=== PATIENT | male | born 1980 | race Caucasian/White ===

== ENCOUNTER 2016-05-22 16:06 | Emergency (ER) | payer OTHER ==
[~2016-05-22] VITALS: Ht 180.3 cm; Wt 85.0 kg
[2016-05-22 16:06] VITALS: BP 128/69; PULSE 108; RESP 18; TEMP 98.2; O2SAT 93
[2016-05-22 16:10] VITALS: BP 128/69; PULSE 106; RESP 16; O2SAT 95
[2016-05-22] MEDS ORDERED: SODIUM CHLOR 0.9% 1000 ML INJ 1,000 ML IV ONE (16:20)
[2016-05-22] MEDS ORDERED: LISI10TA3 PO (16:27)
[2016-05-22] MEDS ORDERED: METF500T PO (16:27)
[2016-05-22] MEDS ORDERED: GABA600T PO (16:27)
[2016-05-22] MEDS ORDERED: INSULIN HUMAN REGULAR 1,000 UNITS/10 ML VIAL IVP ONE ×2 (16:30→18:30)
[2016-05-22] MEDS ORDERED: SODIUM CHLORIDE 0.9% FLUSH 5 ML FLUSH IVF PRN (16:30)
[2016-05-22 16:58] LABS: AUTOMATED NEUTROPHIL # 7.6 TH/MM3 (1.8-7.7); BASOPHIL # 0.1 TH/MM3 (0-0.2); BASOPHIL % 1.1 % (0.0-2.0); EOSINOPHIL # 0.1 TH/MM3 (0-0.4); EOSINOPHIL % 1.1 % (0.0-4.0); HEMATOCRIT 43.8 % (39.0-51.0); HEMO FLAGS DIFF FINAL; LYMPH % 27.7 % (9.0-44.0); LYMPHOCYTE # 3.4 TH/MM3 (1.0-4.8); MEAN CELL VOLUME 97.8 FL (80.0-100.0); MEAN CORPUSCULAR HEMOGLOBIN 34.4 PG (27.0-34.0); MEAN CORPUSCULAR HGB CONC 35.2 % (32.0-36.0); MONO % 7.8 % (0.0-8.0); NEUT % 62.3 % (16.0-70.0); PLATELET COUNT 209 TH/MM3 (150-450); RED BLOOD COUNT 4.48 MIL/MM3 (4.50-5.90); RED CELL DISTRIBUTION WIDTH 12.5 % (11.6-17.2); WHITE BLOOD COUNT 12.2 TH/MM3 (4.0-11.0)
[2016-05-22 17:11] LABS: BLOOD, URINE NEG (NEG); GLUCOSE,URINE 1000 mg/dL (NEG); KETONE, URINE NEG (NEG); NITRITE,URINE NEG (NEG); URINE COLOR LIGHT-YELLOW (YELLW/STRAW)
--- NOTE | 2016-05-22 17:11 | PD ---
HPI Chief Complaint: Diabetic Time Seen by Provider: 16:07 Travel History International Travel<30 days: No Contact w/Intl Traveler<30days: No Traveled to known affect area: No History of Present Illness HPI This is a 35-year-old gentleman who is homeless, who presented to the emergency department via [facility] with complaints of elevated blood sugar. The patient also has a history of alcoholism. He states he has a history of bipolar disorder that he uses alcohol to control. He reports his blood sugar has been high. He states that he has not been taking his medications as prescribed. He says he is here because he wants his liver and his kidneys checked. The patient was noted to have a blood glucose of 444. Dextrose stick. No other complaints time my examination. PFSH Past Medical History Asthma: Yes Cardiovascular Problems: Yes (HTN) Diabetes: Yes (INSULIN-DEPENDENT) Patient Takes Glucophage: Yes (05/20/16) Diminished Hearing: No Tetanus Vaccination: < 5 Years Influenza Vaccination: Yes Past Surgical History Surgical History: No Previous Surgery Social History Alcohol Use: Yes (DAILY) Tobacco Use: Yes (2 PACKS) Substance Use: Yes (CANNABIS) Allergies-Medications (Allergen,Severity, Reaction): Coded Allergies: No Known Allergies (Unverified , 03/01/14) Reported Meds & Prescriptions Reported Meds & Active Scripts Active Reported Lisinopril 10 Mg Tab 10 Mg PO DAILY Metformin (Metformin HCl) 500 Mg Tab 500 Mg PO BIDPC With meals Gabapentin 600 Mg Tab 600 Mg PO TID Review of Systems Except as stated in HPI: all other systems reviewed are Neg General / Constitutional: No: Fever, Chills HENT: No: Headaches, Vertigo Cardiovascular: No: Chest Pain or Discomfort, Palpitations Respiratory: No: Cough, Shortness of Breath Gastrointestinal: No: Nausea, Vomiting Genitourinary: Positive: Frequency, No: Urgency Musculoskeletal: No: Weakness Neurologic: No: Weakness, Dizziness Endocrine: Positive: Polyuria, Polydipsia Physical Exam Narrative GENERAL: Disheveled well-developed gentleman in no acute respiratory distress. SKIN: Warm and dry. HEAD: Atraumatic. Normocephalic. EYES: No scleral icterus. No injection or drainage. ENT: Mucous membranes pink and moist. NECK: Trachea midline. No JVD. CARDIOVASCULAR: Regular rate and rhythm. No murmur appreciated. RESPIRATORY: No accessory muscle use. Clear to auscultation. Breath sounds equal bilaterally. GASTROINTESTINAL: Abdomen soft, non-tender, nondistended. No pulsatile masses. MUSCULOSKELETAL: No obvious deformities. No clubbing. No cyanosis. No edema. NEUROLOGICAL: Awake and alert. No obvious cranial nerve deficits. Motor grossly within normal limits. Slight slurred speech secondary to assumed alcohol use. Data Data Last Documented VS Vital Signs Date Time Temp Pulse Resp B/P Pulse Ox O2 Delivery O2 Flow Rate FiO2 05/22/16 18:40 98 16 105/59 96 Nasal Cannula 2 05/22/16 16:06 98.2 Orders Complete Blood Count With Diff (05/22/16 16:20) Comprehensive Metabolic Panel (05/22/16 16:20) Beta Hydroxybutyrate (Acetone) (05/22/16 16:20) Urinalysis - C+S If Indicated (05/22/16 16:20) Ecg Monitoring (05/22/16 16:20) Iv Access Insert/Monitor (05/22/16 16:20) Oximetry (05/22/16 16:20) NPO (05/22/16 16:20) Sodium Chlor 0.9% 1000 Ml Inj (Ns 1000 M (05/22/16 16:20) Sodium Chloride 0.9% Flush (Ns Flush) (05/22/16 16:30) Insulin Human Regular Inj (Novolin R Inj (05/22/16 16:30) Alcohol (Ethanol) (05/22/16 17:28) Insulin Human Regular Inj (Novolin R Inj (05/22/16 18:30) Labs Laboratory Tests Test 05/22/16 16:40 White Blood Count 12.2 TH/MM3 Red Blood Count 4.48 MIL/MM3 Hemoglobin 15.4 GM/DL Hematocrit 43.8 % Mean Corpuscular Volume 97.8 FL Mean Corpuscular Hemoglobin 34.4 PG Mean Corpuscular Hemoglobin 35.2 % Concent Red Cell Distribution Width 12.5 % Platelet Count 209 TH/MM3 Mean Platelet Volume 8.8 FL Neutrophils (%) (Auto) 62.3 % Lymphocytes (%) (Auto) 27.7 % Monocytes (%) (Auto) 7.8 % Eosinophils (%) (Auto) 1.1 % Basophils (%) (Auto) 1.1 % Neutrophils # (Auto) 7.6 TH/MM3 Lymphocytes # (Auto) 3.4 TH/MM3 Monocytes # (Auto) 1.0 TH/MM3 Eosinophils # (Auto) 0.1 TH/MM3 Basophils # (Auto) 0.1 TH/MM3 CBC Comment DIFF FINAL Differential Comment Urine Color LIGHT-YELLOW Urine Turbidity CLEAR Urine pH 6.0 Urine Specific [place] 1.019 Urine Protein NEG mg/dL Urine Glucose (UA) 1000 mg/dL Urine Ketones NEG mg/dL Urine Occult Blood NEG Urine Nitrite NEG Urine Bilirubin NEG Urine Urobilinogen LESS THAN 2.0 MG/DL Urine Leukocyte Esterase NEG Urine RBC LESS THAN 1 /hpf Urine WBC LESS THAN 1 /hpf Microscopic Urinalysis Comment CULT NOT INDICATED Sodium Level 139 MEQ/L Potassium Level 3.5 MEQ/L Chloride Level 99 MEQ/L Carbon Dioxide Level 30.1 MEQ/L Anion Gap 10 MEQ/L Blood Urea Nitrogen 3 MG/DL Creatinine 1.00 MG/DL Estimat Glomerular Filtration 84 ML/MIN Rate Random Glucose 460 MG/DL Calcium Level 8.2 MG/DL Total Bilirubin 0.3 MG/DL Aspartate Amino Transf 88 U/L (AST/SGOT) Alanine Aminotransferase 144 U/L (ALT/SGPT) Alkaline Phosphatase 86 U/L Total Protein 7.2 GM/DL Albumin 3.3 GM/DL Ethyl Alcohol Level 380 MG/DL B-Hydroxybutyrate 0.14 MMOL/L [facility] Medical Decision Making Medical Screen Exam Complete: Yes Emergency Medical Condition: Yes Differential Diagnosis DKA versus nonketotic hyperglycemia versus electrolyte abnormalities Narrative Course 35 year-old gentleman history of diabetes mellitus, noncompliant, who presents today with complaints of elevated blood sugar. The patient states she's not been taking his hypoglycemic medications. The patient does admit to drinking a large amount of alcohol. His blood sugar was 460 when he arrived. He was given 6 units of IV regular and sent times one dose. He's been given 2 L of IVD fluid followed by second dose of 6 units Regular Insulin. His repeat blood sugar between the first and second insolent dose was 363. We will evaluate the patient for a little bit longer and of his blood sugar becomes within normal limits or close to normal limits, I believe he can safely be discharged. The patient be signed out to Dr. Mariya Schafer who will follow up on the repeat blood sugar. Admits within normal limits or close to normal limits I feel he can safely be discharged. Diagnosis Primary Impression: noncompliant diabetes mellitus Additional Impressions: Alcohol abuse Poor social situation Wilfred Sullivan MD May 22, 2016 17:11
[2016-05-22 17:12] LABS: COMMENT (UR) CULT NOT INDICATED; CULTURE IF INDICATED CULT NOT INDICATED
[2016-05-22 17:35] VITALS: BP 91/54; PULSE 103; RESP 16; O2SAT 98
[2016-05-22 18:08] LABS: ALKALINE PHOSPHATASE 86 U/L (45-117); ALT (GPT) 144 U/L (12-78); ANION GAP 10 MEQ/L (5-15); AST (GOT) 88 U/L (15-37); BETA-HYDROXYBUTYRATE 0.14 MMOL/L (0.00-0.39); BICARBONATE 30.1 MEQ/L (21.0-32.0); BLOOD UREA NITROGEN 3 MG/DL (7-18); CHLORIDE 99 MEQ/L (98-107); GLOMERULAR FILTRATION RATE 84 ML/MIN (>89); POTASSIUM 3.5 MEQ/L (3.5-5.1); SODIUM (NA) 139 MEQ/L (136-145); TOTAL BILIRUBIN ADULT 0.3 MG/DL (0.2-1.0)
[2016-05-22 18:40] VITALS: BP 105/59; PULSE 98; RESP 16; O2SAT 96
--- NOTE | 2016-05-22 20:14 | PD ---
Physical Exam Date Seen by Provider: May 22, 2016 Narrative Care assumed from Dr. Sullivan at 1900 pending repeat fingerstick blood sugar. Data Data Last Documented VS Vital Signs Date Time Temp Pulse Resp B/P Pulse Ox O2 Delivery O2 Flow Rate FiO2 05/22/16 18:40 98 16 105/59 96 Nasal Cannula 2 05/22/16 16:06 98.2 Orders Complete Blood Count With Diff (05/22/16 16:20) Comprehensive Metabolic Panel (05/22/16 16:20) Beta Hydroxybutyrate (Acetone) (05/22/16 16:20) Urinalysis - C+S If Indicated (05/22/16 16:20) Ecg Monitoring (05/22/16 16:20) Iv Access Insert/Monitor (05/22/16 16:20) Oximetry (05/22/16 16:20) NPO (05/22/16 16:20) Sodium Chlor 0.9% 1000 Ml Inj (Ns 1000 M (05/22/16 16:20) Sodium Chloride 0.9% Flush (Ns Flush) (05/22/16 16:30) Insulin Human Regular Inj (Novolin R Inj (05/22/16 16:30) Alcohol (Ethanol) (05/22/16 17:28) Insulin Human Regular Inj (Novolin R Inj (05/22/16 18:30) Bedside Glucose LISA.AC&HS (05/22/16 19:46) Labs Laboratory Tests Test 05/22/16 16:40 White Blood Count 12.2 TH/MM3 Red Blood Count 4.48 MIL/MM3 Hemoglobin 15.4 GM/DL Hematocrit 43.8 % Mean Corpuscular Volume 97.8 FL Mean Corpuscular Hemoglobin 34.4 PG Mean Corpuscular Hemoglobin 35.2 % Concent Red Cell Distribution Width 12.5 % Platelet Count 209 TH/MM3 Mean Platelet Volume 8.8 FL Neutrophils (%) (Auto) 62.3 % Lymphocytes (%) (Auto) 27.7 % Monocytes (%) (Auto) 7.8 % Eosinophils (%) (Auto) 1.1 % Basophils (%) (Auto) 1.1 % Neutrophils # (Auto) 7.6 TH/MM3 Lymphocytes # (Auto) 3.4 TH/MM3 Monocytes # (Auto) 1.0 TH/MM3 Eosinophils # (Auto) 0.1 TH/MM3 Basophils # (Auto) 0.1 TH/MM3 CBC Comment DIFF FINAL Differential Comment Urine Color LIGHT-YELLOW Urine Turbidity CLEAR Urine pH 6.0 Urine Specific [place] 1.019 Urine Protein NEG mg/dL Urine Glucose (UA) 1000 mg/dL Urine Ketones NEG mg/dL Urine Occult Blood NEG Urine Nitrite NEG Urine Bilirubin NEG Urine Urobilinogen LESS THAN 2.0 MG/DL Urine Leukocyte Esterase NEG Urine RBC LESS THAN 1 /hpf Urine WBC LESS THAN 1 /hpf Microscopic Urinalysis Comment CULT NOT INDICATED Sodium Level 139 MEQ/L Potassium Level 3.5 MEQ/L Chloride Level 99 MEQ/L Carbon Dioxide Level 30.1 MEQ/L Anion Gap 10 MEQ/L Blood Urea Nitrogen 3 MG/DL Creatinine 1.00 MG/DL Estimat Glomerular Filtration 84 ML/MIN Rate Random Glucose 460 MG/DL Calcium Level 8.2 MG/DL Total Bilirubin 0.3 MG/DL Aspartate Amino Transf 88 U/L (AST/SGOT) Alanine Aminotransferase 144 U/L (ALT/SGPT) Alkaline Phosphatase 86 U/L Total Protein 7.2 GM/DL Albumin 3.3 GM/DL Ethyl Alcohol Level 380 MG/DL B-Hydroxybutyrate 0.14 MMOL/L MDM Supervised Visit with HARLEY: No Narrative Course Repeat fingerstick blood sugar is in the mid 200s. The patient's anxious to go home. Diagnosis Primary Impression: noncompliant diabetes mellitus Additional Impressions: Poor social situation Alcohol abuse Patient Instructions: Diabetic Hyperglycemia (DC), General Instructions Disposition: 01 DISCHARGE HOME Condition: Stable Mariya Schafer MD May 22, 2016 20:14
== END 2016-05-22 20:16 | disposition home or self-care (01) ==
LOC: NEPC 16:06
DX: E11.65 Type 2 diabetes mellitus with hyperglycemia (principal); Z91.14 Patient's other noncompliance with medication regimen; F10.10 Alcohol abuse, uncomplicated; I10 Essential (primary) hypertension; F17.200 Nicotine dependence, unspecified, uncomplicated; Z59.0 Homelessness; Z79.84 Long term (current) use of oral hypoglycemic drugs; Z86.59 Personal history of other mental and behavioral disorders; Z87.09 Personal history of other diseases of the respiratory system
CPT/HCPCS: 80053; 80320; 81001; 82010; 85025; 96361; 96374; 96376; 99285; J1815; J7030

== ENCOUNTER 2016-05-29 01:05 | Emergency (ER) | payer SELFPAY ==
[~2016-05-29] VITALS: Ht 180.3 cm; Wt 88.0 kg
[2016-05-29] VITALS (8 sets, daily range): BP systolic 112–156; BP diastolic 70–96; PULSE 64–104; RESP 14–18; TEMP 98.1–98.6; O2SAT 94–98
[~2016-05-29 01:05] MED LIST: GABA600T PO; LISI10TA3 PO; METF500T PO
--- NOTE | 2016-05-29 03:06 | PD ---
HPI Chief Complaint: Psychiatric Symptoms Time Seen by Provider: 03:06 Travel History International Travel<30 days: No Contact w/Intl Traveler<30days: No Traveled to known affect area: No History of Present Illness HPI 35-year-old male presents to the emergency department for complaint of depression and suicidal ideation. Patient states she has 3 plans for harming himself either by police, walking in front of a car, or overdosing on medications. Patient has history of depression hypertension and diabetes. Patient states he is not compliant with his medications. Patient also has history of daily alcohol use and states he last drank alcohol on Tuesday morning is concerned that he might withdrawal. Patient states he did go to [facility] prior to coming to the emergency department in order to be admitted for alcohol detox program and for his depression but because his blood sugar was over 300 day could not accept him. Patient denies other concerns or complaints. Patient is unable to identify exacerbating or alleviating factors. Patient denies any pain. No recent fall or injury. PFSH Past Medical History Narrative Medical Asthma depression and paranoid schizophrenia hypertension CVA diabetes alcoholism; no surgeries; tobacco use substance use alcohol use; nursing notes reviewed Asthma: Yes Bipolar Disorder: Yes Depression: Yes Cardiovascular Problems: Yes (HTN) Cerebrovascular Accident: Yes Diabetes: Yes Patient Takes Glucophage: Yes Diminished Hearing: No Schizophrenia: Yes (paranoid) Past Surgical History Surgical History: No Previous Surgery Social History Alcohol Use: Yes (DAILY) Tobacco Use: Yes (2 PACKS) Substance Use: Yes (CANNABIS) Allergies-Medications (Allergen,Severity, Reaction): Coded Allergies: No Known Allergies (Unverified , 05/29/16) Reported Meds & Prescriptions Reported Meds & Active Scripts Active Reported Lisinopril 10 Mg Tab 10 Mg PO DAILY Metformin (Metformin HCl) 500 Mg Tab 500 Mg PO BIDPC With meals Gabapentin 600 Mg Tab 600 Mg PO TID Review of Systems Except as stated in HPI: all other systems reviewed are Neg General / Constitutional: No: Fever, Chills Eyes: No: Visual changes HENT: No: Headaches, Congestion Cardiovascular: No: Chest Pain or Discomfort Respiratory: No: Shortness of Breath Gastrointestinal: No: Abdominal Pain Genitourinary: No: Decreased Urinary Output, Flank Pain Musculoskeletal: No: Myalgias, Arthralgias Skin: No Rash Neurologic: No: Weakness, Dizziness, Syncope Psychiatric: Positive: Depression, Suicidal Ideations Endocrine: No: Heat Intolerance Hematologic/Lymphatic: No: Easy Bruising Physical Exam Narrative GENERAL: Well-developed well-nourished disheveled male in no acute distress no respiratory distress; GCS 15 SKIN: Warm and dry. HEAD: Atraumatic. Normocephalic. EYES: Pupils equal and round. No scleral icterus. No injection or drainage. ENT: No nasal bleeding or discharge. Mucous membranes pink and moist. NECK: Trachea midline. No JVD. CARDIOVASCULAR: Regular rate and rhythm. RESPIRATORY: No accessory muscle use. Clear to auscultation. Breath sounds equal bilaterally. GASTROINTESTINAL: Abdomen soft, non-tender, nondistended. Hepatic and splenic margins not palpable. MUSCULOSKELETAL: Extremities without clubbing, cyanosis, or edema. No obvious deformities. NEUROLOGICAL: Awake and alert. No obvious cranial nerve deficits. Motor grossly within normal limits. Five out of 5 muscle strength in the arms and legs. Normal speech. PSYCHIATRIC: Appropriate mood and affect; insight and judgment normal. Data Data Last Documented VS Vital Signs Date Time Temp Pulse Resp B/P Pulse Ox O2 Delivery O2 Flow Rate FiO2 05/29/16 05:00 88 16 112/70 95 Room Air 05/29/16 01:16 98.1 Orders Complete Blood Count With Diff (05/29/16 03:07) Comprehensive Metabolic Panel (05/29/16 03:07) Urinalysis - C+S If Indicated (05/29/16 03:07) Iv Access Insert/Monitor (05/29/16 03:07) Psych Screen (05/29/16 03:07) Drug Screen, Random Urine (05/29/16 03:07) Alcohol (Ethanol) (05/29/16 03:07) Sodium Chlor 0.9% 1000 Ml Inj (Ns 1000 M (05/29/16 03:15) Insulin Human Regular Inj (Novolin R Inj (05/29/16 03:15) Magnesium (Mg) (05/29/16 03:07) Blood Glucose (05/29/16 03:07) Labs Laboratory Tests Test 05/29/16 05/29/16 03:20 03:30 White Blood Count 8.0 TH/MM3 Red Blood Count 4.54 MIL/MM3 Hemoglobin 15.6 GM/DL Hematocrit 43.7 % Mean Corpuscular Volume 96.2 FL Mean Corpuscular Hemoglobin 34.3 PG Mean Corpuscular Hemoglobin 35.6 % Concent Red Cell Distribution Width 12.8 % Platelet Count 171 TH/MM3 Mean Platelet Volume 8.4 FL Neutrophils (%) (Auto) 62.7 % Lymphocytes (%) (Auto) 26.5 % Monocytes (%) (Auto) 7.3 % Eosinophils (%) (Auto) 2.8 % Basophils (%) (Auto) 0.7 % Neutrophils # (Auto) 5.0 TH/MM3 Lymphocytes # (Auto) 2.1 TH/MM3 Monocytes # (Auto) 0.6 TH/MM3 Eosinophils # (Auto) 0.2 TH/MM3 Basophils # (Auto) 0.1 TH/MM3 CBC Comment DIFF FINAL Differential Comment Sodium Level 139 MEQ/L Potassium Level 3.5 MEQ/L Chloride Level 99 MEQ/L Carbon Dioxide Level 28.0 MEQ/L Anion Gap 12 MEQ/L Blood Urea Nitrogen 4 MG/DL Creatinine 0.72 MG/DL Estimat Glomerular Filtration 123 ML/MIN Rate Random Glucose 295 MG/DL Calcium Level 8.8 MG/DL Magnesium Level 1.5 MG/DL Total Bilirubin 0.4 MG/DL Aspartate Amino Transf 69 U/L (AST/SGOT) Alanine Aminotransferase 71 U/L (ALT/SGPT) Alkaline Phosphatase 91 U/L Total Protein 7.3 GM/DL Albumin 3.2 GM/DL Ethyl Alcohol Level 218 MG/DL Urine Color YELLOW Urine Turbidity CLEAR Urine pH 6.0 Urine Specific [place] 1.035 Urine Protein NEG mg/dL Urine Glucose (UA) 1000 mg/dL Urine Ketones NEG mg/dL Urine Occult Blood NEG Urine Nitrite NEG Urine Bilirubin NEG Urine Urobilinogen 2.0 MG/DL Urine Leukocyte Esterase NEG Urine RBC LESS THAN 1 /hpf Urine WBC 2 /hpf Urine Mucus FEW /lpf Microscopic Urinalysis Comment CULT NOT INDICATED Urine Opiates Screen NEG Urine Barbiturates Screen NEG Urine Amphetamines Screen NEG Urine Benzodiazepines Screen POS Urine Cocaine Screen NEG Urine Cannabinoids Screen NEG MDM Medical Decision Making Medical Screen Exam Complete: Yes Emergency Medical Condition: Yes Medical Record Reviewed: Yes Interpretation(s) CBC & BMP Diagram 05/29/16 03:20 Vital Signs Date Time Temp Pulse Resp B/P Pulse Ox O2 Delivery O2 Flow Rate FiO2 05/29/16 01:16 98.1 104 14 118/75 94 Room Air Differential Diagnosis Depression and suicidal ideation alcoholism polysubstance use uncontrolled diabetes DKA dehydration Narrative Course 35-year-old male with previous suicide attempt by overdose in [facility] presents stating that he wants to harm himself and he has increasing depression with plan to either initiate his by by police, walk in front of her car, or overdosing on medications. Patient also concerned that he may need alcohol detox. Patient also with medical noncompliance and admits to not taking his diabetic medication was noted to have elevated blood sugar. IV access obtained specimens collected and sent for resulting patient finish mixer and 1 L normal saline Accu-Chek at bedside 319 insulin administered. repeat B Patient is stable for psych screening and medically cleared. Diagnosis Primary Impression: Depression Qualified Code: F32.9 - Depression, unspecified depression type Additional Impressions: Suicidal ideation Diabetes Alcohol abuse Pamela Coleman MD May 29, 2016 03:06
[2016-05-29] MEDS ORDERED: SODIUM CHLOR 0.9% 1000 ML INJ 1,000 ML IV ONE (03:15)
[2016-05-29] MEDS ORDERED: INSULIN HUMAN REGULAR 1,000 UNITS/10 ML VIAL IV PUSH ONE (03:15)
[2016-05-29 03:55] LABS: BASOPHIL # 0.1 TH/MM3 (0-0.2); BASOPHIL % 0.7 % (0.0-2.0); EOSINOPHIL # 0.2 TH/MM3 (0-0.4); EOSINOPHIL % 2.8 % (0.0-4.0); HEMATOCRIT 43.7 % (39.0-51.0); HEMO FLAGS DIFF FINAL; LYMPH % 26.5 % (9.0-44.0); LYMPHOCYTE # 2.1 TH/MM3 (1.0-4.8); MEAN CELL VOLUME 96.2 FL (80.0-100.0); MEAN CORPUSCULAR HEMOGLOBIN 34.3 PG (27.0-34.0); MEAN CORPUSCULAR HGB CONC 35.6 % (32.0-36.0); MONO % 7.3 % (0.0-8.0); NEUT % 62.7 % (16.0-70.0); PLATELET COUNT 171 TH/MM3 (150-450); RED BLOOD COUNT 4.54 MIL/MM3 (4.50-5.90); RED CELL DISTRIBUTION WIDTH 12.8 % (11.6-17.2)
[2016-05-29 03:59] LABS: BLOOD, URINE NEG (NEG); COMMENT (UR) CULT NOT INDICATED; CULTURE IF INDICATED CULT NOT INDICATED; GLUCOSE,URINE 1000 mg/dL (NEG); KETONE, URINE NEG (NEG); MUCUS URINE FEW /lpf (OCC); NITRITE,URINE NEG (NEG); URINE COLOR YELLOW (YELLW/STRAW)
[2016-05-29 04:03] LABS: AMPHETAMINE, URINE NEG (NEG); BARBITURATES, URINE NEG (NEG); COCAINE, URINE NEG (NEG)
[2016-05-29 04:18] LABS: ALKALINE PHOSPHATASE 91 U/L (45-117); TOTAL BILIRUBIN ADULT 0.4 MG/DL (0.2-1.0)
[2016-05-29 04:29] LABS: ALT (GPT) 71 U/L (12-78); ANION GAP 12 MEQ/L (5-15); AST (GOT) 69 U/L (15-37); BLOOD UREA NITROGEN 4 MG/DL (7-18); CHLORIDE 99 MEQ/L (98-107); GLOMERULAR FILTRATION RATE 123 ML/MIN (>89); MAGNESIUM 1.5 MG/DL (1.5-2.5); SODIUM (NA) 139 MEQ/L (136-145)
[2016-05-29 04:31] LABS: POTASSIUM 3.5 MEQ/L (3.5-5.1)
[2016-05-29] MEDS ORDERED: LORazepam 2 MG/ML VIAL IV PUSH ONE (08:30)
[2016-05-29] MEDS ORDERED: LORazepam 2 MG TAB PO PRN (08:30)
[2016-05-29] MEDS ORDERED: FLUMAZENIL 0.5 MG/5 ML VIAL IV PUSH PRN (08:30)
[2016-05-29] MEDS ORDERED: LORazepam 2 MG/ML VIAL IV PUSH PRN ×4 (08:30)
[2016-05-29] MEDS: LORazepam 1 MG TAB PO PRN ×2 (14:48→19:08)
[2016-05-30 02:08] VITALS: BP 124/78; PULSE 86; RESP 18; O2SAT 95
[2016-05-30 06:39] VITALS: BP 123/87; PULSE 84; RESP 18; O2SAT 97
[2016-05-30 09:31] VITALS: BP 123/87
--- NOTE | 2016-05-30 11:59 | PD.CONS ---
Provisional Diagnosis Admission Date [place] I. Alcohol-induced mood disorder, marijuana use disorder [place] II. Deferred [place] III. Diabetes mellitus, HTN [place] IV. Poor social and family support [place] V. 55 History of Present Illness Service Psychiatry Consult Requested By Primary Care Physician No Primary Care Physician HPI The patient is a 35-year-old man, homeless, single, unemployed, with psychotic history of alcohol use disorder, bipolar disorder, 2 previous psychiatric hospitalizations, the last one was 2 years ago in [place], no previous suicidal attempts, medical history of hypertension and diabetes, who presents to the emergency department for complaint of depression and suicidal ideation. Patient states she has 3 plans for harming himself either by police, walking in front of a car, or overdosing on medications. Patient states he did go to [facility] prior to coming to the emergency department in order to be admitted for alcohol detox program and for his depression but because his blood sugar was over 300 day could not accept him. On psychiatric evaluation today the patient was calm and cooperative, he says that what he was is detox, he was very interested yesterday and is starting a detox in a [facility] act, but he was rejected due to his high blood sugar. Today he feels much better, still interesting due to. He denies depression, he denies anxiety, he denies david, he denies psychosis, he denies suicidal or homicidal ideation. She is states that his problem is alcohol and he is motivated to fight it is his alcoholism. Patient is fully oriented 3, no gross cognitive impairment observed, no withdrawal symptoms at this moment. Patient reports daily use of alcohol, about 1 gallon of vodka, occasional use of marijuana, denies other drugs. Review of Systems Constitutional: DENIES: Diaphoretic episodes, Fatigue, Fever, Weight gain, Weight loss, Chills, Dizziness, Change in appetite, Night Sweats Endocrine: DENIES: Heat/cold intolerance, Polydipsia, Polyuria, Polyphagia Eyes: DENIES: Blurred vision, Diplopia, Eye inflammation, Eye pain, Vision loss , Photosensitivity, Double Vision Gastrointestinal: DENIES: Abdominal pain, Black stools, Bloody stools, Constipation, Diarrhea, Nausea, Vomiting, Difficulty Swallowing, Anorexia Hematologic/lymphatic: DENIES: Bruising, Lymphadenopathy Immunologic/allergic: DENIES: Eczema, Urticaria Neurologic: DENIES: Abnormal gait, Headache, Localized weakness, Paresthesias, Seizures, Speech Problems, Tremor, Poor Balance Past Family Social History Coded Allergies: No Known Allergies (Unverified , 05/29/16) Reported Medications Lisinopril 10 Mg Tab10 Mg PO DAILY #30 TAB Ref 0 05/22/16 Metformin 500 Mg [id number] Mg PO BIDPC #60 TAB Ref 0 With meals 05/22/16 Gabapentin 600 Mg [id number] Mg PO TID #90 TAB Ref 0 05/22/16 Family History He denies Social History Patient was born and raised in [place], he is now homeless, unemployed, single , his highest level of education is GED Physical Exam Vital Signs Vital Signs Date Time Temp Pulse Resp B/P Pulse Ox O2 Delivery O2 Flow Rate FiO2 05/30/16 09:31 123/87 05/30/16 06:39 84 18 97 05/30/16 02:08 Room Air 05/29/16 13:56 98.6 Mental Status Examination Speech: Unremarkable Orientation: x3 Memory: Unremarkable Thought Process: Logical Thought Content: Unremarkable Hallucination Type: None Attention and Concentration: Good Suicidal Ideation: No Previous Suicide Attempts: No Homicidal Ideation: No Previous Homicide Attempts: No Insight: Good Affect: Good Mood: Appropriate, Angry Assessment & Plan Problem List: (1) Alcohol abuse with alcohol-induced mood disorder Assessment & Plan: On psychiatric evaluation today the patient does seems to have any evidence of depression, david, anxiety, perceptual disturbances, he denies suicidal or homicidal ideation. He denies visual and auditory hallucinations. Patient is motivated to be discharged back to [facility] for detox. He does not meet criteria for second admission at this moment. Extensive support and psycho education provided. [place] act will be lifted. ICD Code: F10.14 Assessment & Plan Estimated LOS: Mike Tavera MD May 30, 2016 11:59
== END 2016-05-30 09:49 | disposition home or self-care (01) ==
LOC: NEPC 01:05 → NEPJ 05-30 09:49
DX: F32.9 Major depressive disorder, single episode, unspecified (principal); E11.9 Type 2 diabetes mellitus without complications; J45.909 Unspecified asthma, uncomplicated; I10 Essential (primary) hypertension; F20.0 Paranoid schizophrenia; R45.851 Suicidal ideations; Z59.0 Homelessness; Z79.4 Long term (current) use of insulin; Z86.73 Personal history of transient ischemic attack (TIA), and cerebral infarction without residual deficits; F10.20 Alcohol dependence, uncomplicated; F17.210 Nicotine dependence, cigarettes, uncomplicated; F12.10 Cannabis abuse, uncomplicated; Y90.7 Blood alcohol level of 200-239 mg/100 ml
CPT/HCPCS: 80053; 80307; 80320; 81001; 83735; 85025; 96361; 96374; 96375; 99285; J1815; J2060; J7030